=== PATIENT | male | born 1990 | race Caucasian/White ===

== ENCOUNTER 2020-03-05 14:49 | Emergency (ER) | payer MEDICAID ==
[~2020-03-05] VITALS: Ht 180.3 cm; Wt 97.5 kg
[2020-03-05 14:53] VITALS: BP 148/102
[2020-03-05] MEDS ORDERED: ASPI-1265 PO (18:01)
== END 2020-03-05 17:04 | disposition home or self-care (01) ==
LOC: ER 14:49
DX: G89.18 Other acute postprocedural pain (principal); F17.200 Nicotine dependence, unspecified, uncomplicated; Z56.0 Unemployment, unspecified; Z48.02 Encounter for removal of sutures
CPT/HCPCS: 99281

== ENCOUNTER 2022-07-18 14:07 | Emergency (ER) | payer MEDICARE, MEDICAID ==
[~2022-07-18] VITALS: Ht 177.8 cm; Wt 95.4 kg
[2022-07-18] MEDS ORDERED: iohexol 350MG/ML 100ml bottle IV ONE (14:27)
[2022-07-18 14:38] LABS: BASOPHILS % (AUTO) 0.4 % (0-1); EOSINOPHILS # (AUTO) 0.1 X10'3 (0-0.9); HEMATOCRIT 38.7 % (42.0-52.0); HEMOGLOBIN 13.1 g/dl (14.0-17.9); LYMPHOCYTES % (AUTO) 17.1 % (21-51); MEAN CORPUSCULAR HEMOGLOBIN 31.3 PG (27.0-31.0); MEAN CORPUSCULAR HGB CONC 33.9 g/dL (33.0-36.5); MEAN CORPUSCULAR VOLUME 92.5 FL (78-98); MEAN PLATELET VOLUME 7.7 FL (7.4-10.4); MONOCYTES # (AUTO) 0.9 X10'3 (0-0.9); MONOCYTES % (AUTO) 7.6 % (2-12); NEUTROPHILS # (AUTO) 8.8 X10'3 (1.8-7.7); NEUTROPHILS % (AUTO) 73.9 % (42-75); PLATELET COUNT 211 X10'3 (140-440); RED BLOOD COUNT 4.19 X10'6 (4.70-6.10); RED CELL DISTRIBUTION WIDTH 13.7 % (11.5-14.5); WHITE BLOOD COUNT 11.9 X10'3 (4.5-11.0)
[2022-07-18 14:51] LABS: APTT 23 SECONDS (22-32)
[2022-07-18 14:53] LABS: ALANINE AMINOTRANSFERASE 30 U/L (12-78); ALBUMIN 3.4 G/DL (3.4-5.0); ALBUMIN/GLOBULIN RATIO 1.1 (1.1-1.5); ALKALINE PHOSPHATASE 80 IU/L (46-116); ANION GAP 7 (8-16); ASPARTATE AMINO TRANSFERASE 19 U/L (10-37); BILIRUBIN,TOTAL 0.3 MG/DL (0.1-1.0); BLOOD UREA NITROGEN 6 MG/DL (7-18); BUN/CREATININE RATIO 4.9 (5.4-32.0); CHLORIDE 104 MMOL/L (99-107); CREATININE 1.22 MG/DL (0.60-1.10); GLUCOSE 95 MG/DL (70-104); POTASSIUM 3.7 MMOL/L (3.5-5.1); SODIUM 140 MMOL/L (135-145); TOTAL CARBON DIOXIDE 28.7 MMOL/L (24-32); TOTAL PROTEIN 6.4 G/DL (6.4-8.2); eGFR 69 ML/MIN
[2022-07-18] MEDS ORDERED: aspirin 81mg tab.chew PO ONE (16:50)
[2022-07-18 18:24] VITALS: BP 134/74
== END 2022-07-18 20:29 | disposition home or self-care (01) ==
LOC: ER 14:08
DX: R47.1 Dysarthria and anarthria (principal); Z20.822 Contact with and (suspected) exposure to COVID-19; Z56.0 Unemployment, unspecified
CPT/HCPCS: 36415; 70450; 70496; 70498; 71045; 80053; 82948; 84484; 85025; 85610; 85730; 87635; 99285; C9803; J3490; Q9967